=== PATIENT | female | born 1990 | race Caucasian/White ===

== ENCOUNTER 2016-11-16 06:00 | Inpatient (IN) | payer OTHER ==
[~2016-11-16] VITALS: Ht 157.5 cm; Wt 66.1 kg
[~2016-11-16 06:00] MED LIST: DOCO200C7 PO
[2016-11-16] MEDS ORDERED: OXYTOCIN 30 UNIT in D5LR 500 ML SCH (06:15)
[2016-11-16] MEDS ORDERED: MAG-AL + SIM LIQUID 30 ML UDC PO PRN ×2 (06:15→13:45)
[2016-11-16] MEDS ORDERED: ACETAMINOPHEN 500 MG TABLET PO PRN ×2 (06:15→13:45)
[2016-11-16] MEDS ORDERED: LIDOCAINE 1% (10mg/ml) 2ml SDV ID PRN (06:15)
[2016-11-16] MEDS ORDERED: CALCIUM CARBONATE 500mg Chewable TAB PO PRN ×2 (06:15→13:45)
[2016-11-16] MEDS: LR 1,000 ML IV PRN ×3 (06:27→12:51)
[2016-11-16 06:31] LABS: HCT - HEMATOCRIT 36.3 % (36-46); HGB - HEMOGLOBIN 12.8 GM/DL (12-16); MEAN CORPUSCULAR HGB 32.6 UUG (26-34); MEAN CORPUSCULAR HGB CONC(MCHC 35.3 GM/DL (31-37); MEAN CORPUSCULAR VOLUME 92.4 UM3 (80-100); RED BLOOD COUNT 3.93 M/MM3 (4.00-5.20); WBC - WHITE BLOOD COUNT 9.2 T/MM3 (4.5-11.0)
[2016-11-16 06:44] VITALS: BP 116/75; PULSE 91; RESP 16; TEMP 98.1; O2SAT 100
[2016-11-16] MEDS ORDERED: D5LR 1,000 ML IV PRN (06:45)
--- NOTE | 2016-11-16 10:06 | ANESOB ---
Epidural/ Date/Time DATE: 11/16/16 TIME: 0950 Preop Diagnosis Procedure: Labor Epidural Plan: Epidural Height: 5 ' 2.00 " Weight: 66.100 kg BMI: kg/m2 P:1 Medications & Allergies Inpatient Medications Current Medications Medications (Trade) Dose Ordered Sig/Susy Start Time Stop Time Status Last Admin Dose Admin Dextrose/Lactated Ringer's 1,000 ml @ 0 mls/hr Q0M PRN 11/16/16 06:45 11/16/16 06:28 125 MLS/HR Oxytocin/Dextrose/ Lactated Ringer's (Pitocin/D5lr) 503 ml @ 0 mls/hr Q0M 11/16/16 06:15 11/16/16 06:28 2 MLS/HR Lidocaine HCl 0.2 mg 0.2 mg PRN PRN 11/16/16 06:15 Lactated Ringer's (Lactated Ringers) 1,000 ml @ 0 mls/hr Q0M PRN 11/16/16 06:03 11/16/16 06:27 999 MLS/HR Acetaminophen (Tylenol Extra Strength) 1-2 TABS = 500-1,000 MG Q4H PRN 11/16/16 06:15 Al Hydroxide/Mg Hydroxide (Maalox) 30 ml Q4H PRN 11/16/16 06:15 Calcium Carbonate (TUMS Regular Strength) 1-2 TABS Q2H PRN 11/16/16 06:15 Docosahexanoic Acid ( Dha) 200 Mg Capsule, 1 CAP PO DAILY, (Reported) Last Taken: on 11/15/16 2100 Coded Allergies: erythromycin base (Verified Allergy, Mild, NAUSEA, 04/19/16) Medical/Surgical History Anesthesia PMH: Denies: *Diabetes, *Hypertension, Anesthesia Reactions, Asthma , CHF, Malignant Hyperthermia, Seizures Smoking Status: Never smoker Second Hand Exposure: No Substance Use Type: does not use Alcohol Intake: none Anesthesia Adverse Reactions: FOUND none Family Hx of Anesthesia Advers: none Hx of Motion Sickness: No Complications During : No Pertinent Findings Laboratory Tests 11/16/16 06:20 Physical Exam Respiratory: Lungs clear Cardiovascular: Regular rate, rhythm Airway Assessment Mallampati Score: II TMD: 3 Fingerbreadths Neck Extension: Good Overall Assessment: May Be Diff Intubation (full stomach precautions, ) ASA: 2 Discussion Discussed risks/options/alternatives of anesthesia. Patient consents. Nursing pain assessment noted. Present for Discussion: Present: Spouse Attestation Statement Prior to the delivery of any anesthetic medication, I examined the patient, developed the plan, obtained the patient's consent and discussed the risk and benefits of the procedure with the patient/guardian. If the note happens to be signed after anesthesia start time, it is only due to providing efficient care of the patient and documenting at a time when the computer is available. VICKIE HENDRICKSON [employer] November 16, 2016 10:06
[2016-11-16] MEDS ORDERED: DiphenhydrAMINE 50 MG/ML INJECTION IV PRN (12:15)
[2016-11-16] MEDS ORDERED: NALOXONE 0.4mg/ml INJECTION IV PRN (12:15)
[2016-11-16] MEDS ORDERED: ROPIVACAINE 1% 200 MG, SUFENTANIL 50 MCG in NORMAL SALINE 80 ML EPI PRN (12:15)
[2016-11-16] MEDS ORDERED: ONDANSETRON 4mg/2ml INJECTION IV PRN (12:15)
[2016-11-16] MEDS ORDERED: OXYTOCIN 30 UNIT in D5LR 500 ML IV ONE (13:39)
[2016-11-16] MEDS ORDERED: OXYTOCIN 30 UNIT in D5W 500 ML IV ONE (13:39)
[2016-11-16] MEDS ORDERED: MILK OF MAGNESIA 30 ML SUSP PO PRN (13:45)
[2016-11-16] MEDS ORDERED: HYDROCODONE/APAP 5 mg/325 mg TABLET PO PRN (13:45)
[2016-11-16] MEDS ORDERED: DiphenhydrAMINE 25 MG CAPSULE PO PRN (13:45)
[2016-11-16] MEDS ORDERED: HYDROCORTISONE 2.5% CREAM 30 GM RECTALLY PRN (13:45)
[2016-11-16] MEDS ORDERED: PHENYLEPHRINE RECTAL SUPPOSITORY RECTALLY PRN (13:45)
[2016-11-16] MEDS: IBUPROFEN 800 MG TABLET PO PRN (15:58)
--- NOTE | 2016-11-16 18:50 | ANESPO ---
Post-Op Note Date 11/16/16 Time: 18:45 Status Pt Participated in Evaluation: Pt participated in person Vital Signs Date Time Temp Pulse Resp B/P Pulse Ox O2 Delivery O2 Flow Rate FiO2 11/16/16 06:44 98.1 91 16 116/75 100 Room Air Respiratory Function: Airway patent Cardiovascular Function: Regular pulse Mental Status: Alert/oriented Pain Level Intensity: 0 Hydration: Taking po fluids Complications during Recovery None apparent Follow-Up Instructions Instructions Per Surgeon VICKIE HENDRICKSON CRNA November 16, 2016 18:50
--- NOTE | 2016-11-16 19:01 | PNPDOC ---
Prog Note 11/16/16 No c/o tonight. q&a-krb XAVI GREEN MD November 16, 2016 19:01
--- NOTE | 2016-11-16 20:02 | LDNF ---
DATE OF DELIVERY: 11/16/2016 DIAGNOSES 1. 26-year-old white female, G2, P1 at 39.0 weeks gestational age. 2. Pitocin induction for logistics. 3. Epidural anesthesia. 4. Spontaneous vaginal delivery. 5. Male , Apgars, 3060 g, (6 pounds 12 ounces) (Bradley Davila). 6. Partial third-degree laceration - repaired. BRIEF DESCRIPTION This is a patient of mine who previously had a forceps delivery with a lot of lacerations so she requested to try to avoid that. We induced her at 39.0 weeks to keep the infant size small. She had a favorable cervix. Pitocin reached a maximum of 22 milliunits/min. She reached complete dilation and labored down some. Then we had a spontaneous vaginal delivery from the OA position. was bulb suctioned after delivery of the head and then again after delivery of the body. Cord was doubly clamped and cut and the infant's father cut the cord. The was placed on mother' s abdomen initially. The cord was allowed to drain for a minute and a half before it was clamped. The placenta delivered spontaneously and was intact. Perineum had a 3a laceration. Rectal sphincter capsule was brought together with interrupted [id number] 2-0 Vicryl sutures. The remainder of the laceration was repaired in the usual fashion with 2-0 Vicryl. A couple of 3-0 chromics were placed on the top to bring the skin edges together. EBL was 350 cc. At the time of dictation mother and are doing well. [facility]
[2016-11-16 21:45] VITALS: BP 113/65; PULSE 75; RESP 16; TEMP 97.7; O2SAT 97
[2016-11-17] MEDS: IBUPROFEN 800 MG TABLET PO PRN ×2 (01:33→11:56)
--- NOTE | 2016-11-17 02:43 | NUR ---
Chart Check 24 hour chart check completed
--- NOTE | 2016-11-17 02:43 | NUR ---
Shift summary Pt is doing well post , VSS, voiding without difficulty, vaginal bleeding reported as minimal, Pt requests Ibuprofen for vaginal discomfort, eating and drinking well, up ad hayley, doing own cares, Reports that is going well, pt sends to nursery between feeds late in shift, will continue to monitor per POC.
[2016-11-17 06:37] LABS: HCT - HEMATOCRIT 33.5 % (36-46); HGB - HEMOGLOBIN 11.7 GM/DL (12-16); MEAN CORPUSCULAR HGB 32.9 UUG (26-34); MEAN CORPUSCULAR HGB CONC(MCHC 34.9 GM/DL (31-37); MEAN CORPUSCULAR VOLUME 94.1 UM3 (80-100); MEAN PLATELET VOLUME 10.1 UM3 (9.4-12.4); RED BLOOD COUNT 3.56 M/MM3 (4.00-5.20); WBC - WHITE BLOOD COUNT 10.6 T/MM3 (4.5-11.0)
[2016-11-17 07:10] VITALS: BP 114/70; PULSE 76; RESP 16; TEMP 98.7; O2SAT 98
--- NOTE | 2016-11-17 08:04 | PNPDOC ---
Prog Note 11/17/16 vss af desires dc q&a f/u 5-6wks dc instructions reviewed. XAVI GREEN MD November 17, 2016 08:04
[2016-11-17] MEDS ORDERED: HYDR-4246 PO (08:07)
[2016-11-17] MEDS ORDERED: IBUP-1547 PO (08:07)
[2016-11-17] MEDS ORDERED: DOCUSATE CALCIUM 240 MG CAPSULE PO SCH (09:00)
[2016-11-17] MEDS ORDERED: PRENATAL VITAMIN TABLET PO SCH (09:00)
== END 2016-11-17 15:33 | disposition home or self-care (01) | DRG 775 ==
LOC: OBSVTOIN 06:00 → MC 06:00
PROVIDERS: ADMIT Obstetrics & Gynecology; ATTEND Obstetrics & Gynecology
PROC: 10E0XZZ Delivery of Products of Conception, External Approach (ICD-10-PCS; principal; 2016-11-16)
PROC: 0DQR0ZZ Repair Anal Sphincter, Open Approach (ICD-10-PCS; 2016-11-16)
PROC: 3E033VJ Introduction of Other Hormone into Peripheral Vein, Percutaneous Approach (ICD-10-PCS; 2016-11-16)
PROC: 10907ZC Drainage of Amniotic Fluid, Therapeutic from Products of Conception, Via Natural or Artificial Opening (ICD-10-PCS; 2016-11-16)
DX: O75.89 Other specified complications of labor and delivery (principal); O70.21 Third degree perineal laceration during delivery, IIIa; Z3A.39 39 weeks gestation of pregnancy; Z37.0 Single live birth
CPT/HCPCS: 36415; 85027; 86850; 86870; 86900; 86901